=== PATIENT | male | born 1985 | race Caucasian/White ===

== ENCOUNTER 2016-07-24 08:12 | Emergency (ER) | payer SELFPAY ==
[~2016-07-24] VITALS: Ht 177.8 cm; Wt 86.4 kg
[~2016-07-24 08:12] MED LIST: FLEXERIL 1010 MG/TAB PO; NO HOME MEDICATIONS
[2016-07-24 08:16] VITALS: PULSE 90; TEMP 97.9
[2016-07-24 08:57] LABS: PH 6 (5-8); SQUAMOUS EPITHELIAL 20-50 /hpf; URINE APPEARANCE Cloudy; URINE BACTERIA Rare /hpf; URINE BILIRUBIN Negative (NEGATIVE); URINE BLOOD 1+ (NEGATIVE); URINE COLOR Yellow; URINE GLUCOSE Negative (NEGATIVE); URINE KETONE Negative (NEGATIVE); URINE UROBILINOGEN Negative (NEGATIVE); URINE WBC >50 /hpf
[2016-07-24 09:21] LABS: AMPHETAMINE URINE POSITIVE; BARBITURATES URINE NEGATIVE; BENZODIAZEPINES URINE NEGATIVE; BUPRENORPHINE URINE NEGATIVE; METHADONE URINE NEGATIVE; OPIATES URINE NEGATIVE; OXYCODONE URINE POSITIVE; PHENCYCLIDINE URINE NEGATIVE; PROPOXYPHENE URINE NEGATIVE; THC CANNABINOIDS URINE POSITIVE
[2016-07-24 09:26] LABS: BASO # 0.1 (0.0-0.2); BASO % 1.1 % (0.0-2.0); EOS # 0.1 (0.0-0.7); GRAN # 2.8 (1.4-6.5); GRAN % 52.8 % (42.2-75.2); HEMATOCRIT 41.2 % (42.0-52.0); HEMOGLOBIN 14.1 g/dl (13.5-18.0); LYMPH # 1.9 (1.2-3.4); LYMPH % 34.8 % (20.0-51.0); MEAN CELL VOLUME 88 fl (80.0-100.0); MEAN CORPUSCULAR HEMOGLOBIN 30 pg (27.0-31.0); MEAN CORPUSCULAR HGB CONC 34 g/dl (33.0-37.0); MEAN PLATELET VOLUME 10.1 fl (7.4-10.4); MONO # 0.5 (0.1-0.6); MONO % 8.9 % (1.7-9.3); PLATELET COUNT 289 K/mm3 (130-400); RED BLOOD COUNT 4.71 M/mm3 (4.20-5.60); REDCELL DISTRIBUTION WIDTH-CV 13.1 % (11.5-14.5); WHITE BLOOD COUNT 5.4 K/mm3 (4.8-10.8)
[2016-07-24 09:43] LABS: ALBUMIN 4.8 gm/dL (3.5-5.0); BILIRUBIN,TOTAL 0.9 mg/dL (0.0-1.0); CALCIUM 9.6 mg/dL (8.4-10.2); CREATININE, serum 0.77 mg/dL (0.66-1.25); POTASSIUM 3.5 mmol/L (3.4-5.0)
[2016-07-24] MEDS ORDERED: BACTRIM DS 8001 TAB PO (11:12)
[2016-07-24 11:17] VITALS: BP 129/91
== END 2016-07-24 11:30 | disposition home or self-care (01) ==
LOC: COL.ER 08:12
PROVIDERS: Emergency Medicine
DX: F15.10 Other stimulant abuse, uncomplicated (principal); F12.10 Cannabis abuse, uncomplicated; F11.10 Opioid abuse, uncomplicated; N39.0 Urinary tract infection, site not specified; F41.1 Generalized anxiety disorder

== ENCOUNTER 2016-10-31 04:32 | Emergency (ER) | payer SELFPAY ==
[~2016-10-31] VITALS: Ht 177.8 cm; Wt 95.5 kg
[~2016-10-31 04:32] MED LIST changes: +BACTRIM DS 8001 TAB PO
[2016-10-31 04:34] VITALS: TEMP 98.4
[2016-10-31 05:09] LABS: BASO # 0.1 (0.0-0.2); BASO % 1.5 % (0.0-2.0); EOS # 0.2 (0.0-0.7); EOS % 2.4 % (0-4.0); GRAN # 5.2 (1.4-6.5); GRAN % 68.1 % (42.2-75.2); HEMATOCRIT 42.4 % (42.0-52.0); HEMOGLOBIN 14.5 g/dl (13.5-18.0); LYMPH # 1.5 (1.2-3.4); LYMPH % 19.6 % (20.0-51.0); MEAN CELL VOLUME 89 fl (80.0-100.0); MEAN CORPUSCULAR HEMOGLOBIN 31 pg (27.0-31.0); MEAN CORPUSCULAR HGB CONC 34 g/dl (33.0-37.0); MEAN PLATELET VOLUME 9.8 fl (7.4-10.4); MONO # 0.6 (0.1-0.6); MONO % 8.1 % (1.7-9.3); PLATELET COUNT 288 K/mm3 (130-400); RED BLOOD COUNT 4.76 M/mm3 (4.20-5.60); REDCELL DISTRIBUTION WIDTH-CV 13.3 % (11.5-14.5); WHITE BLOOD COUNT 7.6 K/mm3 (4.8-10.8)
[2016-10-31 05:20] LABS: ANION GAP 14 mmol/L (7-16); BLOOD UREA NITROGEN 19 mg/dL (9-20); CALCIUM 9.1 mg/dL (8.4-10.2); CARBON DIOXIDE 24 mmol/L (22-30); CHLORIDE 100 mmol/L (98-107); CREATININE, serum 0.94 mg/dL (0.66-1.25); GLUCOSE 89 mg/dL (74-106); POTASSIUM 4.1 mmol/L (3.4-5.0); SODIUM 137 mmol/L (137-145)
[2016-10-31 05:22] LABS: ACETAMINOPHEN < 10 ug/mL (10-30); SALICYLATE < 1.0 mg/dL
[2016-10-31 05:30] LABS: AMPHETAMINE URINE POSITIVE; BARBITURATES URINE NEGATIVE; BENZODIAZEPINES URINE NEGATIVE; BUPRENORPHINE URINE NEGATIVE; METHADONE URINE NEGATIVE; OPIATES URINE NEGATIVE; OXYCODONE URINE NEGATIVE; PHENCYCLIDINE URINE NEGATIVE; PROPOXYPHENE URINE NEGATIVE; THC CANNABINOIDS URINE POSITIVE
[2016-10-31 07:28] VITALS: BP 125/82; PULSE 100
== END 2016-10-31 07:34 | disposition home or self-care (01) ==
LOC: COL.ER 04:32
PROVIDERS: Emergency Medicine
DX: F15.151 Other stimulant abuse with stimulant-induced psychotic disorder with hallucinations (principal); R45.1 Restlessness and agitation; F41.9 Anxiety disorder, unspecified

== ENCOUNTER 2017-01-29 04:16 | Emergency (ER) | payer SELFPAY ==
[~2017-01-29] VITALS: Ht 157.5 cm; Wt 90.9 kg
[2017-01-29 04:19] VITALS: BP 130/72; PULSE 91
[2017-01-29] MEDS ORDERED: PROAIR HFA0.09 MG/AC IH (04:23)
[2017-01-29] MEDS ORDERED: NORCO 325 MG-51 TAB PO (04:48)
[2017-11-08] MEDS ORDERED: COLACE 100100 MG/CAP PO (13:14)
[2017-11-08] MEDS ORDERED: LIDODERM 5% PATC1 EA TP (13:15)
[2017-11-08] MEDS ORDERED: PERCOCET 325 MG1 TA2 PO (13:15)
[2017-11-08] MEDS ORDERED: FLEXERIL 1010 MG/TAB PO (13:15)
[2017-11-08] MEDS ORDERED: NEOSPORIN1 OIN TP (13:16)
== END 2017-01-29 05:19 | disposition home or self-care (01) ==
LOC: COL.ER 04:16
DX: S62.394A Other fracture of fourth metacarpal bone, right hand, initial encounter for closed fracture (principal); S62.396A Other fracture of fifth metacarpal bone, right hand, initial encounter for closed fracture; W22.8XXA Striking against or struck by other objects, initial encounter; Y92.009 Unspecified place in unspecified non-institutional (private) residence as the place of occurrence of the external cause

== ENCOUNTER → 2017-11-15 | Outpatient (CLI) | payer SELFPAY ==
[~2017-11-15] MED LIST changes: +COLACE 100100 MG/CAP PO; +LIDODERM 5% PATC1 EA TP; +NEOSPORIN1 OIN TP; +NEURONTIN100 MG/CAP PO; +NORCO 325 MG-51 TAB PO; +PERCOCET 325 MG1 TA2 PO; +PROAIR HFA0.09 MG/AC IH
== END ==
LOC: COL.RAD 11:22
DX: S22.42XA Multiple fractures of ribs, left side, initial encounter for closed fracture (principal); S27.1XXA Traumatic hemothorax, initial encounter; V86.99XA Unspecified occupant of other special all-terrain or other off-road motor vehicle injured in nontraffic accident, initial encounter

== ENCOUNTER 2017-11-16 11:03 | Inpatient (IN) | payer SELFPAY ==
[~2017-11-16] VITALS: Ht 177.8 cm; Wt 88.2 kg
[2017-11-16] VITALS (10 sets, daily range): BP systolic 107–129; BP diastolic 77–94; PULSE 85–96; TEMP 97.6–98.4
[~2017-11-16 11:03] MED LIST changes: -NEURONTIN100 MG/CAP PO
[2017-11-17] VITALS (8 sets, daily range): BP systolic 119–138; BP diastolic 76–87; PULSE 80–99; TEMP 97.8–98.5
[2017-11-17 12:07] LABS: BASO # 0.1 (0.0-0.2); BASO % 0.9 % (0.0-2.0); EOS # 0.5 (0.0-0.7); EOS % 4.9 % (0-4.0); GRAN # 6.4 (1.4-6.5); GRAN % 66.2 % (42.2-75.2); HEMATOCRIT 40.6 % (42.0-52.0); HEMOGLOBIN 13.6 g/dl (13.5-18.0); LYMPH # 1.8 (1.2-3.4); LYMPH % 18.6 % (20.0-51.0); MEAN CELL VOLUME 91 fl (80.0-100.0); MEAN CORPUSCULAR HEMOGLOBIN 30 pg (27.0-31.0); MEAN CORPUSCULAR HGB CONC 34 g/dl (33.0-37.0); MEAN PLATELET VOLUME 9.8 fl (7.4-10.4); MONO # 0.9 (0.1-0.6); MONO % 9.2 % (1.7-9.3); PLATELET COUNT 384 K/mm3 (130-400); RED BLOOD COUNT 4.48 M/mm3 (4.20-5.60); REDCELL DISTRIBUTION WIDTH-CV 12.9 % (11.5-14.5)
[2017-11-17 12:13] LABS: CALCIUM 8.9 mg/dL (8.4-10.2); CREATININE, serum 0.72 mg/dL (0.66-1.25); POTASSIUM 4.7 mmol/L (3.4-5.0)
[2017-11-18 03:41] VITALS: BP 130/90; PULSE 80; TEMP 98.3
[2017-11-18 08:38] VITALS: BP 120/78; PULSE 93; TEMP 98.4
[2017-11-18 12:10] VITALS: BP 114/81; PULSE 84; TEMP 97.8
[2017-11-18 15:57] VITALS: BP 134/85; PULSE 96; TEMP 98.2
[2017-11-18 20:16] VITALS: BP 139/88; PULSE 81; TEMP 97.9
[2017-11-18 23:25] VITALS: BP 128/78; PULSE 86; TEMP 98.2
[2017-11-19 04:41] VITALS: BP 129/88; PULSE 75; TEMP 97.5
[2017-11-19 07:49] VITALS: BP 123/87; PULSE 81; TEMP 98.1
[2017-11-19 12:57] VITALS: BP 135/82; PULSE 102; TEMP 98.3
[2017-11-19 15:30] VITALS: BP 137/82; PULSE 103; TEMP 97.7
[2017-11-19] MEDS ORDERED: NEURONTIN100 MG/CAP PO (15:44)
== END 2017-11-19 21:00 | disposition home or self-care (01) | DRG 188 ==
LOC: SDCO 11:03 → SURG 16:58 → SDCO 11-17 14:38 → SURG 11-17 14:39
PROVIDERS: Surgery
PROC: 0W9B30Z Drainage of Left Pleural Cavity with Drainage Device, Percutaneous Approach (ICD-10-PCS; principal; 2017-11-16 13:15)
DX: J94.2 Hemothorax (principal)
CPT/HCPCS: OP; A7048; A9284; J0690; J1170; J1885; J2405; J2704; J3010; J7120

== ENCOUNTER → 2017-11-25 | Outpatient (CLI) | payer SELFPAY ==
[~2017-11-25] MED LIST changes: +NEURONTIN100 MG/CAP PO
== END ==
LOC: COL.RAD 11:43
DX: S22.42XD Multiple fractures of ribs, left side, subsequent encounter for fracture with routine healing (principal); S42.022D Displaced fracture of shaft of left clavicle, subsequent encounter for fracture with routine healing

== ENCOUNTER 2019-11-27 12:52 | Emergency (ER) | payer SELFPAY ==
[~2019-11-27] VITALS: Ht 177.8 cm; Wt 90.9 kg
[2019-11-27 13:06] VITALS: BP 135/97; TEMP 98.3
[2019-11-27 13:55] LABS: COLLECTION METHOD CLEAN CATCH
[2019-11-27 14:13] LABS: PH 7 (5-8); SQUAMOUS EPITHELIAL 0-2 /hpf; URINE APPEARANCE Clear; URINE BACTERIA Rare /hpf; URINE BILIRUBIN Negative (NEGATIVE); URINE BLOOD 2+ (NEGATIVE); URINE COLOR Yellow; URINE GLUCOSE Negative (NEGATIVE); URINE KETONE Negative (NEGATIVE); URINE LEUKOCYTE ESTERASE 3+ (NEGATIVE); URINE NITRATE Negative (NEGATIVE); URINE PROTEIN(semi-quant) Negative (NEGATIVE); URINE RBC 0-2 /hpf; URINE UROBILINOGEN Negative (NEGATIVE)
[2019-11-27 14:28] LABS: BASO # 0.1 (0.0-0.2); BASO % 0.5 % (0.0-2.0); EOS # 0.1 (0.0-0.7); EOS % 0.5 % (0-4.0); GRAN % 74.3 % (42.2-75.2); HEMATOCRIT 43.6 % (42.0-52.0); HEMOGLOBIN 14.7 g/dl (13.5-18.0); LYMPH # 1.2 (1.2-3.4); LYMPH % 11.5 % (20.0-51.0); MEAN CELL VOLUME 91 fl (80.0-100.0); MEAN CORPUSCULAR HEMOGLOBIN 31 pg (27.0-31.0); MEAN CORPUSCULAR HGB CONC 34 g/dl (33.0-37.0); MEAN PLATELET VOLUME 9.5 fl (7.4-10.4); MONO # 1.4 (0.1-0.6); MONO % 12.8 % (1.7-9.3); PLATELET COUNT 251 K/mm3 (130-400); REDCELL DISTRIBUTION WIDTH-CV 12.6 % (11.5-14.5)
[2019-11-27 14:48] LABS: ALBUMIN 4.4 gm/dL (3.5-5.0); CALCIUM 9.1 mg/dL (8.4-10.2); CREATININE, serum 0.84 (0.66-1.25); POTASSIUM 3.3 mmol/L (3.4-5.0)
[2019-11-27] MEDS ORDERED: CIPRO 500MG TA500 MG PO (14:52)
[2019-11-27 15:05] VITALS: PULSE 62
== END 2019-11-27 15:05 | disposition home or self-care (01) ==
LOC: COL.ER 12:52
PROVIDERS: Nurse Practitioner Primary Care
DX: N12 Tubulo-interstitial nephritis, not specified as acute or chronic (principal); F17.210 Nicotine dependence, cigarettes, uncomplicated
CPT/HCPCS: J0696; J1885

== ENCOUNTER 2020-08-05 11:23 | Emergency (ER) | payer SELFPAY ==
[~2020-08-05] VITALS: Ht 177.8 cm; Wt 90.9 kg
[~2020-08-05 11:23] MED LIST changes: +CIPRO 500MG TA500 MG PO
[2020-08-05 11:28] VITALS: TEMP 97.9
[2020-08-05 13:19] LABS: BASO # 0.1 (0.0-0.2); EOS % 0.3 % (0-4.0); GRAN # 5.9 (1.4-6.5); GRAN % 75.7 % (42.2-75.2); HEMATOCRIT 45.2 % (42.0-52.0); HEMOGLOBIN 15.4 g/dl (13.5-18.0); LYMPH # 1.1 (1.2-3.4); LYMPH % 13.4 % (20.0-51.0); MEAN CELL VOLUME 93 fl (80.0-100.0); MEAN CORPUSCULAR HEMOGLOBIN 32 pg (27.0-31.0); MEAN CORPUSCULAR HGB CONC 34 g/dl (33.0-37.0); MEAN PLATELET VOLUME 9.7 fl (7.4-10.4); MONO # 0.7 (0.1-0.6); MONO % 8.8 % (1.7-9.3); PLATELET COUNT 299 K/mm3 (130-400); RED BLOOD COUNT 4.87 M/mm3 (4.20-5.60); REDCELL DISTRIBUTION WIDTH-CV 13.2 % (11.5-14.5)
[2020-08-05 13:29] LABS: ALANINE AMINOTRANSFERASE 35 U/L (4-49); ALBUMIN 5.2 gm/dL (3.5-5.0); ALKALINE PHOSPHATASE 71 U/L (50-136); ANION GAP 10 mmol/L (7-16); AST,SGOT 41 U/L (15-37); BILIRUBIN,TOTAL 0.6 mg/dL (0.0-1.0); BLOOD UREA NITROGEN 6 mg/dL (9-20); CALCIUM 9.7 mg/dL (8.4-10.2); CARBON DIOXIDE 25 mmol/L (22-30); CHLORIDE 103 mmol/L (98-107); CREATININE, serum 0.71 (0.66-1.25); GLUCOSE 103 mg/dL (74-106); POTASSIUM 4.4 mmol/L (3.4-5.0); SODIUM 138 mmol/L (137-145); TOTAL PROTEIN 8.7 gm/dL (6.4-8.2)
[2020-08-05 13:31] LABS: ALCOHOL(ethanol),MEDICAL < 10 mg/dL
[2020-08-05 13:40] LABS: TROPONIN-I < 0.012 ng/mL (0.000-0.035)
[2020-08-05 15:45] VITALS: BP 122/75; PULSE 73
== END 2020-08-05 16:00 | disposition home or self-care (01) ==
LOC: COL.ER 11:23
PROVIDERS: Nurse Practitioner Primary Care
DX: F10.10 Alcohol abuse, uncomplicated (principal); R55 Syncope and collapse; F41.9 Anxiety disorder, unspecified; F17.210 Nicotine dependence, cigarettes, uncomplicated; Z82.49 Family history of ischemic heart disease and other diseases of the circulatory system; Y90.0 Blood alcohol level of less than 20 mg/100 ml
CPT/HCPCS: J2060; J3411; J7030

== ENCOUNTER 2021-10-28 16:38 | Emergency (ER) | payer BC ==
[~2021-10-28] VITALS: Ht 177.8 cm; Wt 97.7 kg
[2021-10-28 16:43] VITALS: BP 141/93; TEMP 98.3
[2021-10-28] MEDS ORDERED: ILOTYCIN5 MG/GM OP (17:10)
[2021-10-28 17:25] VITALS: PULSE 85
== END 2021-10-28 17:25 | disposition home or self-care (01) ==
LOC: COL.ER 16:38
DX: S05.02XA Injury of conjunctiva and corneal abrasion without foreign body, left eye, initial encounter (principal); Z28.310 Unvaccinated for COVID-19; F17.210 Nicotine dependence, cigarettes, uncomplicated; X58.XXXA Exposure to other specified factors, initial encounter

== ENCOUNTER 2023-11-30 03:17 | Inpatient (IN) | payer BC ==
[2023-11-30] VITALS (7 sets, daily range): BP systolic 128–145; BP diastolic 81–99; PULSE 75–94; TEMP 68.1–98.1
[~2023-11-30] VITALS: Ht 177.8 cm; Wt 115.0 kg
[~2023-11-30 03:17] MED LIST changes: +ILOTYCIN5 MG/GM OP
[2023-11-30] MEDS ORDERED: Morphine 4 MG/ML VIAL IV ONE (04:00)
[2023-11-30] MEDS ORDERED: droPERidol 2.5 MG/ML 2 ML VIAL IV ONE (04:00)
[2023-11-30] MEDS ORDERED: NS 1,000 ML IV ONE ×2 (04:00→06:15)
[2023-11-30 04:14] LABS: COLLECTION METHOD CLEAN CATCH
[2023-11-30] MEDS ORDERED: Ondansetron 4 MG/2 ML VIAL IV ONE (04:15)
[2023-11-30 04:19] LABS: BASO # 0.1 K/mm3 (0.0-0.2); BASO % 0.7 % (0.0-2.0); EOS # 0.1 K/mm3 (0.0-0.7); EOS % 0.5 % (0.0-4.0); GRAN # 12.2 K/mm3 (1.4-6.5); GRAN % 81.3 % (42.2-75.2); HEMATOCRIT 48.3 % (42.0-52.0); HEMOGLOBIN 16.6 g/dl (13.5-18.0); LYMPH # 1.6 K/mm3 (1.2-3.4); LYMPH % 10.4 % (20.0-51.0); MEAN CELL VOLUME 92 fl (80.0-100.0); MEAN CORPUSCULAR HEMOGLOBIN 32 pg (27-31); MEAN CORPUSCULAR HGB CONC 34 g/dl (33.0-37.0); MEAN PLATELET VOLUME 9.7 fl (7.4-10.4); MONO % 6.8 % (1.7-9.3); PLATELET COUNT 272 K/mm3 (130-400); RED BLOOD COUNT 5.26 M/mm3 (4.20-5.60)
[2023-11-30 04:27] LABS: PROTHROMBIN TIME 10.8 SECONDS (9.7-12.8)
[2023-11-30 04:32] LABS: PH 6.5 (5.0-8.5); URINE APPEARANCE CLEAR (CLEAR/HAZY); URINE BLOOD 1+ (NEGATIVE); URINE COLOR YELLOW (YELLOW); URINE GLUCOSE NEGATIVE (NEGATIVE); URINE KETONE 1+ (NEGATIVE); URINE NITRATE NEGATIVE (NEGATIVE); URINE PROTEIN(semi-quant) 1+ (NEGATIVE)
[2023-11-30 04:47] LABS: TRICYCLIC ANTIDEPRESS URINE NEGATIVE (NEGATIVE)
[2023-11-30 05:18] LABS: ALBUMIN 4.2 g/dL (3.5-5.0); ALKALINE PHOSPHATASE 94 U/L (40-150); ANION GAP 14 mmol/L (7-16); AST,SGOT 41 U/L (5-34); BILIRUBIN,TOTAL 0.8 mg/dL (0.2-1.2); BLOOD UREA NITROGEN 13 mg/dL (9-21); C-REACTIVE PROTEIN 0.43 mg/dL (0.00-0.50); CALCIUM 8.9 mg/dL (8.4-10.2); CHLORIDE 98 mEq/L (98-107); CREATININE, serum 0.89 mg/dL (0.72-1.25); GLUCOSE 134 mg/dL (70-99); LIPASE 19 U/L (8-78); MAGNESIUM 1.7 mg/dL (1.6-2.6); POTASSIUM 4.1 mEq/L (3.5-4.5); SODIUM 132 mEq/L (136-145); TOTAL PROTEIN 8.5 g/dl (6.2-8.1)
[2023-11-30 05:23] LABS: ALCOHOL(ethanol),MEDICAL < 10 mg/dL (0-10)
[2023-11-30] MEDS ORDERED: Iohexol 350 - 100 ML VIAL IV ONE (05:32)
[2023-11-30] MEDS ORDERED: NS 55 ML IV ONE (05:33)
[2023-11-30 06:02] LABS: ALANINE AMINOTRANSFERASE 55 U/L (0-55)
[2023-11-30] MEDS ORDERED: *Potassium Replacement Protocol MC SCH (08:15)
--- NOTE | 2023-11-30 08:30 | NUR ---
NOTIFIED DR. ZAVALA OF SURGICAL CONSULT.
[2023-11-30] MEDS ORDERED: dexAMETHasone 10 MG/ML VIAL ONE (09:42)
[2023-11-30] MEDS ORDERED: fentaNYL 50 MCG/ML 5 ML VIAL ONE (09:42)
[2023-11-30] MEDS ORDERED: NS 10 ML IV ONE (09:42)
[2023-11-30] MEDS ORDERED: Rocuronium 50 MG/5 ML Multi-Dose VIAL ONE ×2 (09:42→11:18)
[2023-11-30] MEDS ORDERED: Ketorolac 30 MG/ML VIAL ONE (09:42)
[2023-11-30] MEDS ORDERED: Ondansetron 4 MG/2 ML VIAL ONE (09:42)
[2023-11-30] MEDS ORDERED: Lidocaine PF 2% (20 MG/ML) 5 ML VIAL ONE (09:42)
--- NOTE | 2023-11-30 09:48 | NUR ---
Legal Support Specialist met with patient and his father, Hunter (ph#[phone]) to discuss discharge planning. Patient lives in [place] with Hunter and does not currently have a primary care provider. Patient was interested in a list of providers in the area, which SW provided. Patient has BCBS through his employer, the [employer]. Patient does not use any DME and is independent with ADLS. Patient does not have DPOA-HC and was not interested in creating one at this time. Patient is not and has one child, age six. Patient's father is next of kin. Discharge Plan: Home
[2023-11-30] MEDS ORDERED: Ondansetron 4 MG/2 ML VIAL IV PRN ×2 (10:00→12:30)
[2023-11-30] MEDS ORDERED: fentaNYL 50 MCG/ML 1 ML SYRINGE/VIAL [PACU/SDC ONLY] IV PRN (10:00)
[2023-11-30] MEDS ORDERED: HYDROmorphone 1 MG/1 ML SYRINGE [PACU/SDC ONLY] IV PRN (10:00)
[2023-11-30] MEDS ORDERED: hydrALAZINE 20 MG/ML 1 ML VIAL IV PRN (10:00)
[2023-11-30] MEDS ORDERED: droPERidol 2.5 MG/ML 2 ML VIAL IV PRN (10:00)
--- NOTE | 2023-11-30 10:45 | NUR ---
IN TO SEE PT THIS AM. CONSENTS SIGNED ON CHART. PT TO SURGERY PER BED WITH
--- NOTE | 2023-11-30 12:13 | NUR ---
D: Workforce Planner stopped by room on rounds. A: Pt was resting and content with family in the room. Pt has no needs right now. P: Workforce Planner informed pt that if he needed anything from the senior software qa analyst area to let his nurse know. Workforce Planner will follow up as needed.
[2023-11-30] MEDS ORDERED: Morphine 4 MG/ML VIAL IV PRN (12:30)
--- NOTE | 2023-11-30 12:39 | NUR ---
PT TO ROOM 347 @1225 WITH REPORT FROM [facility] PACU. PT IS A/O X4, LUNGS CTA, BOWEL SOUNDS HYPO, 3 LAPSITES CDI WITH BANDAIDS. VSS. FAMILY AT BEDSIDE.
[2023-11-30] MEDS ORDERED: Folic Acid 1 MG TAB PO SCH (13:51)
[2023-11-30] MEDS ORDERED: Thiamine 100 MG TAB PO SCH (13:51)
[2023-11-30] MEDS ORDERED: Folic Acid 5 MG/ML 10 ML Multi-Dose VIAL IV ONE (14:00)
[2023-11-30] MEDS ORDERED: LORazepam 2 MG/ML 1 ML VIAL IV PRN (14:00)
[2023-11-30] MEDS ORDERED: FOLIC ACID 11 MG/TA1 PO (14:49)
[2023-11-30] MEDS ORDERED: AMOXICILLIN 8751 TAB PO (14:49)
[2023-11-30] MEDS ORDERED: DUO-KAPS1 CAP PO (14:49)
--- NOTE | 2023-11-30 15:14 | NUR ---
DISCHARGE ORDERS RECIEVED INFORMED PT AND HE WANTS TO EAT PRIOR TO LEAVING.
--- NOTE | 2023-11-30 15:44 | NUR ---
DISCHARGE INSTRUCTIONS REVEALED WITH PT AND FAMILY. QUESTIONS SOLICITED AND ANSWERED. PT LEFT UNIT AMBULATORY.
[2023-11-30] MEDS ORDERED: Multivitamin TAB PO SCH (17:00)
[2023-12-01] MEDS ORDERED: Folic Acid 1 MG TAB PO SCH (09:00)
== END 2023-11-30 16:12 | disposition home or self-care (01) | DRG 399 ==
LOC: COL.ER 03:17 → SURG 06:52
PROVIDERS: Emergency Medicine; Surgery; ADMIT Internal Medicine
PROC: 0DTJ4ZZ Resection of Appendix, Percutaneous Endoscopic Approach (ICD-10-PCS; principal; 2023-11-30 10:30)
DX: K35.80 Unspecified acute appendicitis (principal)
CPT/HCPCS: J0690; J1100; J1790; J1885; J1920; J2270; J2405; J2543; J2704; J3010; J3411; J7030; Q9967